=== PATIENT | female | born 1960 | race African-American/Black ===

== ENCOUNTER 2025-03-18 13:23 | Emergency (ER) | payer OTHER ==
[~2025-03-18] VITALS: Ht 167.6 cm; Wt 104.0 kg
[2025-03-18 13:28] VITALS: O2SAT 98
[2025-03-18 15:01] LABS: BASOPHILS % 0.3 % (0.0-2.0); EOSINOPHILS % 1.5 % (0.0-5.0); HEMATOCRIT. 36.5 % (36.0-48.0); HEMOGLOBIN. 12.0 g/dL (12.0-16.0); LYMPHOCYTES % 29.5 % (20.0-50.0); MEAN PLATELET VOLUME 7.9 fl (7.4-10.4); MONOCYTES % 5.8 % (2.0-8.0); NEUTROPHILS % 62.9 % (40.0-76.0); PLATELET 275 x1000/uL (130-400); RED BLOOD CELL COUNT 3.92 mill/uL (4.2-5.4); RED CELL DISTRIBUTION WIDTH 14.4 % (11.6-14.6)
[2025-03-18 15:16] LABS: CREATININE 1.1 mg/dL (0.6-1.0)
[2025-03-18 15:17] LABS: TROPONIN I HIGH SENSITIVITY 23 ng/L (3.0-34); UREA NITROGEN BLOOD 24 mg/dL (9-23)
[2025-03-18] MEDS ORDERED: IBUP-2029 MT (15:50)
[2025-03-18] MEDS: IBUPROFEN 600MG TABLET PO ONE (15:58)
[2025-03-18 16:15] VITALS: BP 169/82; PULSE 78; RESP 18; TEMP 37.1; O2SAT 98
== END 2025-03-18 16:16 | disposition home or self-care (01) ==
LOC: ER 13:23
DX: R07.89 Other chest pain (principal); Z79.899 Other long term (current) drug therapy
CPT/HCPCS: 36415; 71045; 80048; 84484; 85025; 93005; 99285